=== PATIENT | male | born 1995 | race Two or more races ===

== ENCOUNTER 2025-03-30 09:06 | Emergency (ER) | payer SELFPAY ==
[~2025-03-30] VITALS: Ht 167.6 cm; Wt 91.6 kg
[2025-03-30] MEDS ORDERED: IBUPROFEN 600 MG TABLET ONE (09:22)
[2025-03-30] MEDS: IBUPROFEN 600 MG TABLET PO ONE (09:25)
[2025-03-30 09:28] VITALS: TEMP 98.2
[2025-03-30 10:10] VITALS: BP 126/71; O2SAT 99
== END 2025-03-30 10:10 | disposition home or self-care (01) ==
LOC: ER 09:10
DX: R07.9 Chest pain, unspecified (principal)
CPT/HCPCS: 71045-TC